=== PATIENT | male | born 1950 | race Caucasian/White ===

== ENCOUNTER 2017-12-21 11:17 | Emergency (ER) | payer OTHER, MEDICARE ==
[2017-12-21 11:53] LABS: Urine Blood NEGATIVE (NEG); Urine Glucose NEGATIVE (NEG); Urine Protein NEGATIVE (NEG); Urine pH 6.5 (5.0-7.0)
--- NOTE | 2017-12-21 12:36 | RAD REPORT ---
EXAM DESCRIPTION: CT - Stone Protocol - 12/21/2017 12:22 pm CLINICAL HISTORY: Abdominal pain COMPARISON: None. TECHNIQUE: Axial 5 mm thick images were obtained without oral or IV contrast. The [id number] span s the entirety of the system including uppermost abdomen and lung bases. All CT scans are performed using dose optimization technique as appropriate and may include automated exposure control or mA/KV adjustment according to patient size. FINDINGS: No hydronephrosis is present and no obstructing ureteral calculi. A 5 centimeter cyst is p resent posterior mid left kidney. Multiple low-density areas within each pelvis are believed to be pa rapelvic cysts and not dilatation of the collecting system. In the lateral mid left kidney there is a 14 millimeter low-density area that is probably a minimally complex cyst. This is not fully characte rized. Urinary bladder is only partially filled. Prostate gland is enlarged measuring 6.5 cm AP x 8 cm transverse. There is an irregular lobulated con tour projecting into the bladder base. It is difficult to determine if this is prostatic hypertrophy extending into the bladder base or a trigone bladder mass. Correlation can be made with PSA values an d any possible UA abnormalities. No adjacent lymphadenopathy mass or edema. Imaged portions of the liver, spleen and pancreas show no suspicious findings on non-contrast imaging . Several small low-density areas are present in the liver parenchyma most likely cysts. These are un judy a centimeter and not fully characterized. No gallbladder or biliary tree abnormality. No signific ant adrenal finding. No suspicious bowel findings. Moderate stool volume is present in the colon. There is mild to moderat e sigmoid diverticulosis without diverticulitis. No hernia, mass or bulky lymphadenopathy noted. No free air, free fluid or inflammatory stranding. No significant bony abnormality. Degenerative changes are present. IMPRESSION: No hydronephrosis, obstructing calculus or acute finding. A 14 millimeter low-density mass lateral mid left kidney is probably a minimally complex cyst. This c an be monitored on subsequent imaging. Enlarged prostate gland with a lobulated masslike contour at the trigone of the bladder. This could b e prostatic hypertrophy, prostate invasion of the bladder or a bladder base mass. Correlation with PS A and UA findings needed. Approximately 5 centimeter benign cyst posterior mid left kidney with bilateral parapelvic cysts pres ent. No acute GI process. There is left-sided diverticulosis and moderate stool volume throughout the colo n. Isodense masses and pyelonephritis are not excluded on stone protocol technique.
[2017-12-21 12:46] LABS: Absolute Lymphocytes (CBC) 0.9 K/uL (0.7-4.9); Absolute Monocytes 0.5 K/uL (0.1-1.3); Absolute Neutrophil 2.6 K/uL (1.8-8.0); Basophils % 0.4 % (0-1.3); Eosinophils % 1.1 % (0-4.4); Hematocrit 47.4 % (39.6-49.0); Lymphocytes % 23.5 % (15.3-44.8); MCH 31.8 pg (27.0-35.0); MCV 92.2 fL (80-100); MPV 8.4 fL (7.6-11.3); Monocytes % 11.3 % (3.3-12.3); RBC Red Blood Cell Count 5.14 M/uL (4.33-5.43)
[2017-12-21 13:15] LABS: Albumin 3.6 g/dL (3.4-5.0); Bilirubin Direct 0.1 mg/dL (0-0.2); Bilirubin Total 0.6 mg/dL (0.2-1.0); Potassium 3.8 mmol/L (3.5-5.1); Protein, Total 7.1 g/dL (6.4-8.2)
--- NOTE | 2017-12-21 14:20 | EDPHYS ---
Physician Documentation [facility] Name: Hank De Age: 67 yrs Sex: Male : 1950 Arrival Date: 12/21/2017 Time: 11:19 Bed 19 Private MD: Darrell Mejia ED Physician Luis Parson HPI: 12/21 14:14 This 67 yrs old Male presents to ER via Ambulatory with complaints of gs Abdominal Pain, Constipation. 14:14 The patient presents with abdominal pain in the lower abdomen. Onset: The gs symptoms/episode began/occurred 1 week(s) ago, and became persistent intermittent. The symptoms do not radiate. Associated signs and symptoms: Pertinent positives: constipation. The symptoms are described as crampy. Modifying factors: The symptoms are alleviated by nothing, the symptoms are aggravated by nothing. Severity of pain: At its worst the pain was moderate in the emergency department the pain has improved markedly. The patient has not experienced similar symptoms in the past. The patient has not recently seen a physician. Historical: - Allergies: 11:28 No Known Allergies; aa5 - PMHx: 11:28 Hyperlipidemia; Hypertension; aa5 - PSHx: 11:28 Knee surgery; Hernia repair; Appendectomy; Brain tumor sx; Thumb sx; aa5 - Immunization history:: Pneumococcal vaccine is not up to date, Flu vaccine is not up to date. - Social history:: Smoking status: Patient/guardian denies using tobacco. - Ebola Screening: : No symptoms or risks identified at this time. ROS: 14:14 All other systems are negative. gs Exam: 14:14 Head/Face: Normocephalic, atraumatic. Eyes: Pupils equal round and reactive to light, gs extra-ocular motions intact. Lids and lashes normal. Conjunctiva and sclera are non-icteric and not injected. Cornea within normal limits. Periorbital areas with no swelling, redness, or edema. ENT: Nares patent. No nasal discharge, no septal abnormalities noted. Tympanic membranes are normal and external auditory canals are clear. Oropharynx with no redness, swelling, or masses, exudates, or evidence of obstruction, uvula midline. Mucous membranes moist. Neck: Trachea midline, no thyromegaly or masses palpated, and no cervical lymphadenopathy. Supple, full range of motion without nuchal rigidity, or vertebral point tenderness. No Meningismus. Chest/axilla: Normal chest wall appearance and motion. Nontender with no deformity. No lesions are appreciated. Cardiovascular: Regular rate and rhythm with a normal S1 and S2. No gallops, murmurs, or rubs. Normal PMI, no JVD. No pulse deficits. Respiratory: Lungs have equal breath sounds bilaterally, clear to auscultation and percussion. No rales, rhonchi or wheezes noted. No increased work of breathing, no retractions or nasal flaring. Abdomen/GI: Soft, non-tender, with normal bowel sounds. No distension or tympany. No guarding or rebound. No evidence of tenderness throughout. Back: No spinal tenderness. No costovertebral tenderness. Full range of motion. Skin: Warm, dry with normal turgor. Normal color with no rashes, no lesions, and no evidence of cellulitis. MS/ Extremity: Pulses equal, no cyanosis. Neurovascular intact. Full, normal range of motion. Neuro: Awake and alert, GCS 15, oriented to person, place, time, and situation. Cranial nerves II-XII grossly intact. Motor strength 5/5 in all extremities. Sensory grossly intact. Cerebellar exam normal. Normal gait. 14:14 Constitutional: The patient appears alert, awake. Vital Signs: 11:28 BP 138 / 93; Pulse 83; Resp 16 S; Temp 97.4(TE); Pulse Ox 99% on R/A; Weight 87.09 kg aa5 (R); Height 6 ft. 0 in. (182.88 cm) (R); Pain 9/10; 12:43 BP 120 / 79; Pulse 73; Resp 14; Pulse Ox 97% ; bp 14:09 BP 124 / 89; Pulse 71; Resp 16; Pulse Ox 98% ; bp 14:36 BP 123 / 80; Pulse 62; Resp 14; Pulse Ox 98% ; bp 11:28 Body Mass Index 26.04 (87.09 kg, 182.88 cm) aa5 MDM: 12:04 Patient medically screened. gs 14:14 Differential diagnosis: bowel obstruction, diverticulitis, non-specific abd pain. Data gs reviewed: vital signs, nurses notes. Counseling: I had a detailed discussion with the patient and/or guardian regarding: the historical points, exam findings, and any diagnostic results supporting the discharge/admit diagnosis, lab results, radiology results, the need for outpatient follow up. Response to treatment: There is no appreciated change of the patient's symptoms at this time, and as a result, I will discharge patient. 12/21 11:49 Order name: Urine Dipstick--Ancillary (enter results); Complete Time: 12:37 bd 12/21 12:05 Order name: Basic Metabolic Panel; Complete Time: 13:29 gs 12/21 12:05 Order name: CBC with Diff; Complete Time: 13:29 gs 12/21 12:05 Order name: Creatinine for Radiology; Complete Time: 13:29 gs 12/21 12:05 Order name: Hepatic Function; Complete Time: 13:29 gs 12/21 12:05 Order name: Lipase; Complete Time: 13:29 12/21 12:05 Order name: IV Saline Lock; Complete Time: 12:34 gs 12/21 12:05 Order name: Labs collected and sent; Complete Time: 12:34 gs 12/21 12:05 Order name: EKG; Complete Time: 12:06 12/21 12:05 Order name: EKG - Nurse/Tech; Complete Time: 12:16 gs 12/21 12:05 Order name: CT Stone Protocol; Complete Time: 12:37 gs Administered Medications: No medications were administered Disposition: 12/21/17 14:19 Discharged to Home. Impression: Lower abdominal pain, unspecified. - Condition is Stable. - Discharge Instructions: Abdominal Pain, Adult. - Medication Reconciliation Form, Thank You Letter, Antibiotic Education, Prescription Opioid Use form. - Follow up: Private Physician; When: 2 - 3 days; Reason: Re-evaluation by your physician. Signatures: Dispatcher [employer] Ramandeep Whitehead RN RN aa5 Luis Parson MD MD gs Peltier, Brian RN RN bp Corrections: (The following items were deleted from the chart) 14:37 14:19 12/21/2017 14:19 Discharged to Home. Impression: Lower abdominal pain, bp unspecified. Condition is Stable. Forms are Medication Reconciliation Form, Thank You Letter, Antibiotic Education, Prescription Opioid Use. Follow up: Private Physician; When: 2 - 3 days; Reason: Re-evaluation by your physician. gs
--- NOTE | 2017-12-21 14:20 | ER ---
Nurse's Notes [facility] Name: Hank De Age: 67 yrs Sex: Male : 1950 Arrival Date: 12/21/2017 Time: 11:19 Bed 19 Private MD: Darrell Mejia Diagnosis: Lower abdominal pain, unspecified Presentation: 12/21 11:26 Presenting complaint: Patient states: intermittent lower abd pain x 1 week ago. Pt aa5 states "I am constipated and nauseous". Denies vomiting, reports decreased appetite. Transition of care: patient was not received from another setting of care. Onset of symptoms was November 2017. Risk Assessment: Do you want to hurt yourself or someone else? Patient reports no desire to harm self or others. Initial Sepsis Screen: Does the patient meet any 2 criteria? No. Patient's initial sepsis screen is negative. Does the patient have a suspected source of infection? No. Patient's initial sepsis screen is negative. Care prior to arrival: None. 11:26 Method Of Arrival: Ambulatory aa5 11:26 Acuity: SEBASTIAN 3 aa5 Triage Assessment: 14:08 General: Appears in no apparent distress. comfortable, Behavior is calm, cooperative, bp appropriate for age. Historical: - Allergies: 11:28 No Known Allergies; aa5 - PMHx: 11:28 Hyperlipidemia; Hypertension; aa5 - PSHx: 11:28 Knee surgery; Hernia repair; Appendectomy; Brain tumor sx; Thumb sx; aa5 - Immunization history:: Pneumococcal vaccine is not up to date, Flu vaccine is not up to date. - Social history:: Smoking status: Patient/guardian denies using tobacco. - Ebola Screening: : No symptoms or risks identified at this time. Screenin:35 Abuse screen: Denies threats or abuse. Denies injuries from another. Nutritional bp screening: No deficits noted. Tuberculosis screening: No symptoms or risk factors identified. Fall Risk None identified. Assessment: 11:30 General: Appears in no apparent distress. comfortable, slender, Behavior is calm, bp cooperative, appropriate for age. Pain: Complains of pain in abdomen. Neuro: Level of Consciousness is awake, alert, obeys commands, Oriented to person, place, time, situation, Appropriate for age. Cardiovascular: No deficits noted. Respiratory: Airway is patent Respiratory effort is even, unlabored, Respiratory pattern is regular, symmetrical. GI: Bowel sounds present X 4 quads. Abd is soft X 4 quads. : No signs and/or symptoms were reported regarding the genitourinary system. EENT: No deficits noted. Derm: No deficits noted. Musculoskeletal: Circulation, motion, and sensation intact. Range of motion: intact in all extremities. 12:43 Reassessment: PT RETURNED FROM CT. ALL CURRENT ORDERS COMPLETED, RESULTS PENDING. bp 14:09 Reassessment: ALL CURRENT ORDERS COMPLETED, DISPO PENDING. bp 14:36 Reassessment: PT D/C HOME AMBULATORY WITH FAMILY, DX WITH UNSPECIFIED ABD PAIN. bp Vital Signs: 11:28 BP 138 / 93; Pulse 83; Resp 16 S; Temp 97.4(TE); Pulse Ox 99% on R/A; Weight 87.09 kg aa5 (R); Height 6 ft. 0 in. (182.88 cm) (R); Pain 9/10; 12:43 BP 120 / 79; Pulse 73; Resp 14; Pulse Ox 97% ; bp 14:09 BP 124 / 89; Pulse 71; Resp 16; Pulse Ox 98% ; bp 14:36 BP 123 / 80; Pulse 62; Resp 14; Pulse Ox 98% ; bp 11:28 Body Mass Index 26.04 (87.09 kg, 182.88 cm) aa5 ED Course: 11:19 Patient arrived in ED. rg4 11:19 Darrell Mejia MD is Private Physician. rg4 11:27 Triage completed. aa5 11:27 Arm band placed on. aa5 11:31 Luis Parson MD is Attending Physician. gs 11:37 Darrell Leal, RN is Primary Nurse. bp 11:50 Urine Dipstick--Ancillary (enter results) Sent. mh5 12:[address] jg6 12:21 CT completed. Patient tolerated procedure well. Patient moved back from CT. jg6 12:22 CT Stone Protocol In Process Unspecified. EDMS 12:25 EKG done, by player piano technician. reviewed by Luis Parson MD. at1 12:35 Patient has correct armband on for positive identification. Bed in low position. Call bp light in reach. Side rails up X2. Adult w/ patient. 12:35 Inserted saline lock: 20 gauge in right antecubital area, using aseptic technique. bp Blood collected. 14:37 No provider procedures requiring assistance completed. IV discontinued, intact, bp bleeding controlled, No redness/swelling at site. Pressure dressing applied. Administered Medications: No medications were administered Outcome: 14:19 Discharge ordered by . srinath 14:37 Discharged to home ambulatory, with family. bp 14:37 Condition: stable 14:37 Discharge instructions given to patient, Instructed on discharge instructions, follow up and referral plans. Demonstrated understanding of instructions, follow-up care. 14:37 Patient left the ED. bp Signatures: Dispatcher [employer] EDMS Ramandeep Peters, RN RN aa5 Jaycee Sparks, auto clutch rebuilder EKG Tat1 Loren Melvin 4 Anneliese Young 5 Luis Parson MD MD gs Peltier, Brian RN RN Romelia Christie jg6 Corrections: (The following items were deleted from the chart) 14:13 14:09 BP 127 / 89; Pulse 59bpm; Resp 16bpm; Pulse Ox 98%; bp bp
[2017-12-21 15:15] VITALS: TEMP 97.4
[2017-12-21 15:18] VITALS: O2SAT 98
[2017-12-21 15:19] VITALS: BP 123/80
--- NOTE | 2017-12-21 16:20 | EKG ---
Test Date: 2017-12-21 Test Time: 12:12:55 Baster Hand: ALLYSON MEASUREMENT RESULTS: Intervals: Rate: 67 WI: 154 QRSD: 98 QT: 404 QTc: 426 Duncan: P: 48 WI: 154 QRS: 45 T: 22 INTERPRETIVE STATEMENTS: Normal sinus rhythm Normal ECG Compared to ECG 08/08/2016 10:46:21 No significant changes Electronically Signed On 12-21-17 16:19:55 CDT by Hans Sanchez
== END 2017-12-21 14:37 | disposition home or self-care (01) ==
LOC: ER 11:17
DX: R10.30 Lower abdominal pain, unspecified (principal); I10 Essential (primary) hypertension; E78.5 Hyperlipidemia, unspecified
CPT/HCPCS: 36415; 74176; 76377; 80048; 80076; 81003; 83690; 85025; 93005; 99284

== ENCOUNTER 2019-09-25 14:34 | Emergency (ER) | payer OTHER, MEDICARE ==
--- OUTSIDE RECORDS SUMMARY | 2019-09-25 14:36 | XMS REPORT | Continuity of Care Document ---
:1950 Author Organization [facility] [employer] Information [place] Care Team Providers Name Role Phone [facility] Information [employer] Unavailable Un available Problems Problem Status Onset Classification Date Comments Sourc e Date Reported Other specified 12/27/19 07/11/2018 disorders of 18 [place] kidney and ureter R10.9 Active 12/23/19 [facility] [address] [place] D32.9 - "BENIGN Active 04/19/19 O PID NEOPLASM OF [address] MENINGES, U" MENINGIOMA Active 07/29/[address] Enlarged prostate 07/11/2018 M H without lower [place] urinary tract symptoms Diverticulosis of 07/11/2018 M H large intestine [place] without perforation or abscess without bleeding Hyperlipidemia Resolved Problem 07/11/2018 [place] (disorder) [facility] [place], [facility] [place] Hypertensive Resolved Problem 07/11/2018 Yobany as disorder, Medical systemic arterial Ce nter, (disorder) Latrice, M [facility] [place]umar, [facility] [place] NOLVIA TULIO CEREBR Active [facility] UNSPECIFIED Active [facility] ABDOMINAL PAIN Yolie nn OTHER SPECIFIED Active Sami rial DISORDERS OF S[facility] KIDNEY AND Medications No Data Provided for This Section Allergies, Adverse Reactions, Alerts Substance Category Reaction Severity Reaction Status Date Comments S ource type Reported No Known Assertion Drug Medication allergy Emma and Allergies Immunizations No Data Provided for This Section Results Order Results Value Reference Date Interpretation Comments Source Name Range CHEM eGFR 92 PANEL 2018 Comment: The [place] eGFR is calculated using the CKD-EPI formula. In most young, healthy individuals the eGFR will be >90 mL/min/1.73m2. The eGFR declines with age. An eGFR of 60-89 may be normal in some populations, particularly the elderly, for whom the CKD-EPI formula has not been extensively validated. Use of the eGFR is not recommended in the following populations:<b r/>
Indivi duals with unstable creatinine concentrations , including patients and those with serious co-morbid conditions.

Patient s with extremes in muscle mass or diet.

The data above are obtained from the National Kidney Disease Education Program (NKDEP) which additionally recommends that when the eGFR is used in patients with extremes of body mass index for purposes of drug dosing, the eGFR should be multiplied by the estimated BMI. CHEM Creatinine 0.81 0.50 - 1.40 12/22[facility] 2017 [place] CHEM eGFR 80 08/08/ <sup>1</sup>Re [address] Comment: Medical The eGFR is Center calculated using the CKD-EPI formula. In most young, healthy individuals the eGFR will be >90 mL/min/1.73m2. The eGFR declines with age. An eGFR of 60-89 may be normal in some populations, particularly the elderly, for whom the CKD-EPI formula has not been extensively validated. Use of the eGFR is not recommended in the following populations:&l t;br/>
Ind ividuals with unstable creatinine concentrations , including patients and those with serious co-morbid conditions.

Patient s with extremes in muscle mass or diet.

The data above are obtained from the National Kidney Disease Education Program (NKDEP) which additionally recommends that when the eGFR is used in patients with extremes of body mass index for purposes of drug dosing, the eGFR should be multiplied by the estimated BMI. CHEM Creatinine 1.0 0.5 - 1.4 08/08/ [facility] 2013 [facility] CHEM BUN 15 7 - 22 08/[address] Pathology Reports No Data Provided for This Section Diagnostic Reports Report Value Date Source Abdomen/Pelvis w/wo Patient Name: GINNY QUEEN 018 [facility] IV contrast CT : 1950; Age: 67 years Male MR: [id number] Study: Abdomen/Pelvis w/wo IV contrast CT 2017 11:48 AM CDT CLINICAL INDICATION: - othe r specified disorders of kidney and ureter, lower abdominal pain COMPARISON: None TECHNIQUE: Multidetector CT imaging of the abdomen and pelvis WITH AND WITHOUT IV contrast. Coronal and sagittal reconstructions were generated and reviewed. CT imaging performed at this location utiliz es radiation dose optimizati on techniques which include one or more of the following: -Automated exposure control -Adjustment of the mA and/or kV according to pat ient size -Use of iterative reconstruction technique Radiation dose: 1604.34 mGycm IV contrast: 100 cc of Omnipaque 300 Oral contrast: 50 mL of Omnipaque FINDINGS: Lower thorax: Subpleural 5 m m nodule within the right lower lobe. Few calcified granulomas within the right lower lobe. Small hiatal hernia. Hepatobiliary: Multiple small hepatic cysts. Unr emarkable gallbladder. Pancreas: No focal mass or ductal dilatation. Spleen: No splenomegaly. Adrenals: No nodules. Kidneys: Multiple cortical a nd parapelvic cysts within both kidneys. No hydronephrosis or nephrolithiasis. Enhancing mass (4.9 x 3.3 x 4.2 cm) within the medial right kidney. The mass does not extend in to the renal pelvis. No evid ence of renal vein thrombus. No enhancing mass within the contralateral left kidney. Pelvic organs: Enlarged pros pate measures approximately 7.2 x 7.8 x 6.5 cm. Decompressed bladder. Peritoneum/Retroperitoneum: No free air or free fluid. Lymph nodes: No lymphadenopathy. Vessels: Mild aortoiliac atherosclerosis. GI: No significant bowel thi ckening or dilatation. Extensive colonic diverticulosis. Bones and soft tissues: Degenerative changes of the lumbar spine. IMPRESSION: Enhancing mass (4.9 x 3.3 x 4.2 cm) within the medial right kidney suspicious for renal cell carcinoma. Severe prostatomegaly. Extensive colonic diverticulosis. Subpleural nodule (5 mm) wit hin the right lower lobe. Consider follow-up CT chest in 6-12 months to assess stability. SL: [id number] Brain w/wo contrast MRI of the brain with and without contrast 0 04/26/2015 [facility] [place] MRI Clinical indication: Meningioma Technique: Multiplanar, mult isequence pre- and postcontrast images of the brain were obtained. 15 cc of Omniscan was administered. Comparison: 03/23/2014 Findings: Brain volumes are within normal limits for age. The left anterior falcine enhancing, diffusion restricted mass with dural tail likely due to meningioma has not significantly changed. By my estefanía surements, this measures nohelia roximately 1.8 cm in all dimensions. Mild remodeling of the left anterior medial frontal cortex, without evidence of vasogenic edema. Minimal nonspecific T2 hyperintensities of the cerebral white matter are within normal limits for age not significantly changed. There is no evidence of acute infarct, intracranial hemorrhage, mass- effect, midline shift, hydrocephalus or extr a-axial collection. The orbi ts are normal. The paranasal sinuses and mastoid air cells are well-aerated. Moderate rightward nasal septal deviation and spurring contacts remodels the right inferior turbi kb, which is a potential source of headaches i n some patients. Impression: No significant change in lef t anterior falcine probable meningioma. No acute abnormality. Brain w/wo contrast EXAM: MRI BRAIN WITHOUT AND WITH CONTRAST EKATERINA Patino MRI DATE: 03/23/2014 at 1420 hours. INDICATION: Meningioma status post gamma surgery 08/13/2013 TECHNIQUE: Multiplanar, mult isequence MRI of the brain was performed prior to and following intravenous administration of 15 cc Omniscan. COMPARISON: MRI brain 08/08/2013 FINDINGS: Redemonstration o f extra-axial T2 hyperintense enhancing mass along the anterior falx, asymmetric to the left. The mass is unchanged in size and appearance measuring up to 17 x 19 x 18 mm ( axial x craniocaudal dimensi ons). There is associated mild mass effect on the left cingulate gyrus and left frontal lobe. Punctate focus of enhancemen t seen only on the coronal images in the left putamen (image 26/series [id number]) was not definitely present on previous studies and may represent artifact. Small foci of T2 hyperintens e signal in the periventricular and subcortical white matter is seen. Although nonspecific lack represent chronic small vessel ischemic changes and is stable since the prior studies. There is no restric sridevi diffusion to suggest acute or subacute infarction. Ventricles are normal.The larger intracranial vascular flow voids are preserved. No abnormality of the skull base or calvarium is present. The visualized paranasal sinuses, mastoid air cells, and orbits are within normal limits. IMPRESSION: 1. Unchanged appearance of left anterior parafal cine meningioma. 2. Punctate focus of enhance ment seen only on the coronal images in the left putamen without corresponding abnormality on orthogonal imaging or other sequences. Not seen on previous images. This may re present artifact although th e presence of neoplastic disease cannot be entirely excluded. Close continued followup is recommended. Brain w contrast MRI EXAM: MRI BRAIN WITH CONTRAST. 08/08/2013 [facility] DATE: 08/08/2013 INDICATION: Meningioma, gamma knife. TECHNIQUE: Axial 3-D T1 SPGR imaging the brain was acquired following intravenous administration of 18 cc Multihance. COMPARISON: MRI brain from 07/15/2013. DISCUSSION: Again demonstrat ed is the enhancing extra-axial anterior parafalcine mass, eccentric to the left, which measures 20 mm transverse x18 mm AP with mild associated local mass effect. Mass is no t significantly changed in s ize. No additional abnormal enhancing lesions within the included portions of the brain. In the included portions of the lateral ventricles are normal in size without midline shift. IMPRESSION: Limited sequence for treatment planning. Anterior parafalcine meningioma, not significant ly changed in size. Consultation Notes No Data Provided for This Section Discharge Summaries No Data Provided for This Section History and Physicals No Data Provided for This Section Vital Signs No Data Provided for This Section Encounters Location Location Encounter Encounter Reason Attending ADM DC Stat us Source Details Type Number For Provider Date Date Visit [facility] Outpatient [id number] Edgar 08/08 08/08 Geni [facility] [id number] Hans 03/23 03/24 [facility]2014 [facility] Outpt Diag [id number] Hans 04/26 04/27 [facility] [place] [facility] [place] [facility] Outpatient [id number] Pawan 12/22 12/23 Sukumar Pulido /2017 [facility] Procedures Procedure Code Date Perfomer Comments Source Arthroscopic [id number] 03/02/1984 debridement of knee Emma and, joint [facility] [place] Assessment and Plan No Data Provided for This Section Plan of Care No Data Provided for This Section Social History Social History Date Source Social History TypeResponse 07/14/2013 SER[facility] kraus Alcohol Use: Current, Type: Beer, Frequency: Temi ly, Has alcohol use interfered with work or home life? No, Do you ever drink more than intended? No, Has anyone been hurt or at risk by your drinking? No, Ready t o change: No, Concerns about alcohol use in household: No Smoking Status Never smoker, Exposure to Tobacco Smoke None, Cigarette Smoking Last 365 Days No, Reg Smoking Cessation Counseling No Social History TypeResponse 07/14/2013 SERA Carusokhanh ramesh Cong Alcohol Current, Type Beer. Frequency: Daily. Started age 21 Years. Alcohol use interferes with work or home: No. Drinks more than intended: No. Others hurt by drinking: No. Ready to change: No. Household alcohol concerns: No. Smoking Status Never smoker; Exposure to Tobacco Smoke None; Cigarette Smoking Last 365 Days No; Reg Smoking Cessation Counseling No Social History TypeResponse 07/14/2013 [place] Alcohol Current, Type Beer. Frequency: Daily. Started age 21 Years. Alcohol use interferes with work or home: No. Drinks more than intended: No. Others hurt by drinking: No. Ready to change: No. Household alcohol concerns: No. Smoking Status Never smoker; Exposure to Tobacco Smoke None; Cigarette Smoking Last 365 Days No; Reg Smoking Cessation Counseling No entered on: 07/14/13 Social History TypeResponse 07/14/2013 [facility] Alcohol Use: Current, Type: Beer, Frequency: Temi ly, Has alcohol use interfered with work or home life? No, Do you ever drink more than intended? No, Has anyone been hurt or at risk by your drinking? No, Ready t o change: No, Concerns about alcohol use in household: No Smoking Status Never smoker, Exposure to Tobacco Smoke None, Cigarette Smoking Last 365 Days No, Reg Smoking Cessation Counseling No Family History No Data Provided for This Section Advance Directives No Data Provided for This Section Functional Status No Data Provided for This Section
--- OUTSIDE RECORDS SUMMARY | 2019-09-25 14:36 | XMS REPORT | Clinical Summary ---
:1950 Author Organization [facility] Address [address] [place] [address] Care Team Providers Name Role Phone Provider Primary Care Provider Unavailable Allergies Active Allergy Reactions Severity Noted Date Comments Iodixanol Swelling High 04/30/2018 Left eye rednes s and itching, left eyelid swelling Medications Medication Sig Dispensed Refills Start Date End Date Status irbesartan-hydrochlor irbesartan 150 mg-hydrochlorothiazide 12.5 mg ta blet 0 Active othiazide (AVALIDE) Take 1 tablet every day by oral route. 150-12.5 mg per tablet tamsulosin (FLOMAX) Flomax 0.4 mg capsule 0 Active 0.4 mg capsule Take 1 capsule every day by oral route at bedtime Lactobac Probiotic 0 Active no.41-Bifidobact no.7 (PROBIOTIC-10) 70 mg (3 billion cell) capsule TURMERIC ORAL Take by mouth. 0 A ctive calcium Take by mouth. 0 Activ e citrate/vitamin D3 (CITRACAL + D ORAL) polyethylene glycol Take 17 g by mouth 0 Active (MIRALAX) 17 gram daily. packet Active Problems Problem Noted Date Right kidney mass 01/26/2018 Right renal mass 01/25/2018 Social History Tobacco Use Types Packs/Day Years Used Date Never Smoker Smokeless Tobacco: Never Used Alcohol Use Drinks/Week oz/Week Comments Yes occasionally Sex Assigned at Date Recorded Not on file Job Start Date Occupation Industry Not on file Not on file Not on file Travel History Travel Start Travel End No recent travel history available. Last Filed Vital Signs Not on file Plan of Treatment Health Maintenance Due Date Last Done Comments COLONOSCOPY SCREENING 2000 SHINGLES VACCINES (#1) 2000 65+ PNEUMOCOCCAL VACCINE (1 of 2 - PCV13) 10/31/2015 INFLUENZA VACCINE 10/01/2019 Implants Implanted Type Area Storage Solutions Architect Device Shelf Model / Identifier Expiration Serial / Date Lot Clip Ligtng Hem-O-Radames Endoscpc Aplr Ply Lg - [id number] Surgic al N/A: N/A WECK CLOSURE [id number] / Implanted: 01/25/2018 at [facility] (Quantity not on file) Implan ts; SYSTEMS / Expanders; Extenders; Surgical Wires Clip Ligtng Hem-O-Radames Endoscpc Aplr Ply Lg - [id number] Surgic al N/A: N/A WECK CLOSURE 09/07/2022 [id number] / Implanted: Qty: 2 on 01/25/2018 by Hector Irene MD at [facility] Implants; SYSTEMS / Expanders; Extenders; Surgical Wires Clip Ligtng Hem-O-Radames Endoscpc Aplr Ply Lg - [id number] Surgic al N/A: N/A WECK CLOSURE 08/02/2022 [id number] / Implanted: Qty: 2 on 01/25/2018 by Hector Irene MD at [facility] Implants; SYSTEMS / Expanders; Extenders; Surgical Wires Results Not on fileafter 09/24/2018 Insurance Payer Benefit Plan / Subscriber ID Effective Dates Phone Addre ss Type Group MEDICARE MEDICARE PART A xxxxxxxxxxx 2015-Present [place], [place] Medicare AND B AARP AARP SUPPLEMENT xxxxxxxxxxx 2017-Present Commercial Advance Directives For more information, please contact: [phone] Type Date Recorded Patient Civil Engineering Drafter Explanati on Advance Directives, Living Will and Medical Power of Chemical Plant Manager Advance Directives, Living Will 01/30/2018 8:37 AM 01-24-18 and Medical Power of Chemical Plant Manager
[2019-09-25 15:20] LABS: Absolute Lymphocytes (CBC) 1.1 K/uL (0.7-4.9); Basophils % 0.5 % (0-1.3); Hematocrit 43.8 % (39.6-49.0); MPV 8.2 fL (7.6-11.3); RBC Red Blood Cell Count 4.88 M/uL (4.33-5.43)
[2019-09-25 15:37] LABS: Albumin 3.6 g/dL (3.4-5.0); Bilirubin Direct 0.1 mg/dL (0-0.2); Bilirubin Total 0.4 mg/dL (0.2-1.0); Potassium 3.4 mmol/L (3.5-5.1); Protein, Total 7.2 g/dL (6.4-8.2)
[2019-09-25 15:58] LABS: Urine Blood NEGATIVE (NEG); Urine Glucose NEGATIVE (NEG); Urine Protein NEGATIVE (NEG)
[2019-09-25] MEDS ORDERED: ONDANSETRON 4 MG/2 ML VIAL ONE (16:01)
[2019-09-25] MEDS ORDERED: MORPHINE 2 MG/ML SYR ONE (16:01)
[2019-09-25] MEDS ORDERED: NA CHLORIDE 0.9% 1,000 ML ONE (16:02)
--- NOTE | 2019-09-25 17:22 | RAD REPORT ---
EXAM DESCRIPTION: CT - Abdomen Pelvis Wo Contrast - 09/25/2019 5:03 pm CLINICAL HISTORY: Abdominal pain COMPARISON: 2017 TECHNIQUE: Computed axial tomography of the abdomen and pelvis was obtained. IV was not requested. O ral contrast was given. Coronal reconstructions performed. All CT scans are performed using dose optimization technique as appropriate and may include automated exposure control or mA/KV adjustment according to patient size. FINDINGS: The evaluation of solid organs and vessels is limited secondary to the lack of contrast a dministration. Small hepatic cysts The spleen, pancreas and adrenals appear grossly normal Bilateral renal cysts. Largest extends off left kidney measuring 4.7 centimeters. There is no evidence of diverticulitis. The prostate gland is markedly enlarged. A small hiatal hernia. Moderate amount stool throughout the colon IMPRESSION: Marked prostatic enlargement Moderate amount of stool throughout the colon
--- NOTE | 2019-09-25 17:27 | EDPHYS ---
Physician Documentation [facility] Name: Hank De Age: 68 yrs Sex: Male : 1950 Arrival Date: 09/25/2019 Time: 14:36 Bed 6 Private MD: Darrell Mejia ED Physician Delroy Ring HPI: 09/24 15:01 This 68 yrs old Male presents to ER via Ambulatory with complaints of keila Abdominal Pain. 15:01 The patient presents with abdominal pain. Onset: The symptoms/episode began/occurred 3 keila day(s) ago. The symptoms do not radiate. Associated signs and symptoms: none. The symptoms are described as constant, crampy. Modifying factors: The symptoms are alleviated by nothing, the symptoms are aggravated by nothing. Severity of pain: At its worst the pain was moderate in the emergency department the pain is unchanged. The patient has experienced similar episodes in the past, several times. Historical: - Allergies: 14:43 iv contrast; hb - PMHx: 14:43 Hyperlipidemia; Hypertension; hb - PSHx: 14:43 Knee surgery; Hernia repair; Appendectomy; Brain tumor sx; Thumb sx; hb - Immunization history:: Adult Immunizations up to date. - Social history:: Smoking status: Patient denies any tobacco usage or history of. - Family history:: not pertinent. ROS: 15:01 Constitutional: Negative for fever, chills, and weight loss, Eyes: Negative for injury, keila pain, redness, and discharge, ENT: Negative for injury, pain, and discharge, Neck: Negative for injury, pain, and swelling, Cardiovascular: Negative for chest pain, palpitations, and edema, Respiratory: Negative for shortness of breath, cough, wheezing, and pleuritic chest pain, Back: Negative for injury and pain, : Negative for injury, bleeding, discharge, and swelling, MS/Extremity: Negative for injury and deformity, Skin: Negative for injury, rash, and discoloration, Neuro: Negative for headache, weakness, numbness, tingling, and seizure, Psych: Negative for depression, anxiety, suicide ideation, homicidal ideation, and hallucinations, Allergy/Immunology: Negative for hives, rash, and allergies, Endocrine: Negative for neck swelling, polydipsia, polyuria, polyphagia, and marked weight changes, Hematologic/Lymphatic: Negative for swollen nodes, abnormal bleeding, and unusual bruising. 15:01 Abdomen/GI: Positive for abdominal pain, of the right lower quadrant and left lower quadrant. Exam: 15:01 Constitutional: This is a well developed, well nourished patient who is awake, alert, keila and in no acute distress. Head/Face: Normocephalic, atraumatic. Eyes: Pupils equal round and reactive to light, extra-ocular motions intact. Lids and lashes normal. Conjunctiva and sclera are non-icteric and not injected. Cornea within normal limits. Periorbital areas with no swelling, redness, or edema. ENT: Nares patent. No nasal discharge, no septal abnormalities noted. Tympanic membranes are normal and external auditory canals are clear. Oropharynx with no redness, swelling, or masses, exudates, or evidence of obstruction, uvula midline. Mucous membranes moist. Neck: Trachea midline, no thyromegaly or masses palpated, and no cervical lymphadenopathy. Supple, full range of motion without nuchal rigidity, or vertebral point tenderness. No Meningismus. Chest/axilla: Normal chest wall appearance and motion. Nontender with no deformity. No lesions are appreciated. Cardiovascular: Regular rate and rhythm with a normal S1 and S2. No gallops, murmurs, or rubs. Normal PMI, no JVD. No pulse deficits. Respiratory: Lungs have equal breath sounds bilaterally, clear to auscultation and percussion. No rales, rhonchi or wheezes noted. No increased work of breathing, no retractions or nasal flaring. Back: No spinal tenderness. No costovertebral tenderness. Full range of motion. Male : Normal genitalia with no discharge or lesions. Skin: Warm, dry with normal turgor. Normal color with no rashes, no lesions, and no evidence of cellulitis. MS/ Extremity: Pulses equal, no cyanosis. Neurovascular intact. Full, normal range of motion. Neuro: Awake and alert, GCS 15, oriented to person, place, time, and situation. Cranial nerves II-XII grossly intact. Motor strength 5/5 in all extremities. Sensory grossly intact. Cerebellar exam normal. Normal gait. Psych: Awake, alert, with orientation to person, place and time. Behavior, mood, and affect are within normal limits. 15:01 Abdomen/GI: Inspection: abdomen appears normal, Bowel sounds: active, Palpation: abdomen is soft and non-tender, Liver: no appreciated palpable abnormalities, Hernia: not appreciated. Vital Signs: 14:39 BP 143 / 99; Pulse 103; Resp 16; Temp 97.9; Pulse Ox 100% on R/A; Weight 83.91 kg; hb Height 6 ft. (182.88 cm); Pain 9/10; 16:00 BP 129 / 83; Pulse 62; Resp 18; Temp 97.5(O); Pulse Ox 99% on R/A; Pain 5/10; ls4 16:56 BP 158 / 83; Pulse 58; Resp 17; Temp 97.5(TE); Pulse Ox 98% on R/A; mh5 18:12 BP 136 / 91; Pulse 64; Resp 18; Temp 97.8(O); Pulse Ox 98% on R/A; Pain 4/10; ls4 14:39 Body Mass Index 25.09 (83.91 kg, 182.88 cm) hb MDM: 14:45 Patient medically screened. [facility] 15:07 Differential diagnosis: bowel obstruction, diverticulitis, Irritable bowel syndrome, keila non-specific abd pain, pancreatitis, urinary tract infection. Data reviewed: vital signs, nurses notes, lab test result(s), radiologic studies, CT scan. Data interpreted: classroom monitor: rate is 103 beats/min, Pulse oximetry: on room air is 100 %. Test interpretation: by ED physician or midlevel provider:. Counseling: I had a detailed discussion with the patient and/or guardian regarding: the historical points, exam findings, and any diagnostic results supporting the discharge/admit diagnosis, lab results, radiology results. Medical screen evaluation completed. [facility] emergency medical condition absent. 17:09 Awaiting: CT scan results, for reading. [facility] 09/24 15:01 Order name: Basic Metabolic Panel; Complete Time: 15:58 09/24 15:01 Order name: CBC with Diff; Complete Time: 15:58 09/24 15:01 Order name: Hepatic Function; Complete Time: 15:58 09/24 15:01 Order name: Lipase; Complete Time: 15:58 09/24 15:01 Order name: CT Abd/Pelvis - Without Cont (PO Contrast Only); Complete Time: 17:24 [facility] 09/24 15:54 Order name: Urine Dipstick--Ancillary (enter results); Complete Time: 17:07 09/24 15:01 Order name: IV Saline Lock; Complete Time: 15:12 [facility] 09/24 15:01 Order name: Labs collected and sent; Complete Time: 15:12 [facility] 09/24 15:01 Order name: Urine Dipstick-Ancillary (obtain specimen); Complete Time: 17:32 [facility] Administered Medications: 16:12 Drug: NS 0.9% 1000 ml Route: IV; Rate: 1 bolus; Site: left antecubital; ls4 17:30 Follow up: IV Status: Completed infusion; IV Intake: 1000ml ls4 16:12 Drug: morphine 2 mg Route: IVP; Site: left antecubital; ls4 18:12 Follow up: Response: No adverse reaction ls4 16:12 Drug: Zofran (Ondansetron) 4 mg Route: IVP; Site: left antecubital; ls4 18:05 Follow up: Response: No adverse reaction; Marked relief of symptoms ls4 18:04 Drug: Potassium Effervescent Tablet 25 mEq Route: PO; ls4 18:11 Follow up: Response: No adverse reaction ls4 18:04 Drug: Lactulose 30 grams Volume: 45 ml; Route: PO; ls4 18:11 Follow up: Response: No adverse reaction ls4 18:04 Drug: Dulcolax Suppository 10 mg Route: AK; ls4 18:11 Follow up: Response: No adverse reaction ls4 Disposition: 09/25/19 17:27 Discharged to Home. Impression: Abdominal tenderness, Constipation, Hypokalemia. - Condition is Stable. - Discharge Instructions: Abdominal Pain, Adult, Constipation, Adult, Potassium Content of Foods, Constipation, Adult, [id number], Abdominal Pain, Adult, [id number], Hypokalemia. - Prescriptions for Bentyl 20 mg Oral Tablet - take 1 tablet by ORAL route every 6 hours As needed; 20 tablet. Dulcolax 10 mg Rectal Suppository - insert 1 suppository by RECTAL route once daily As needed; 10 suppository. Miralax 17 gram/dose Oral - take 1 packet by ORAL route every 12 hours dilute powder in 8 ounces of water or juice; 28 packet. - Medication Reconciliation Form, Thank You Letter, Antibiotic Education, Prescription Opioid Use form. - Follow up: Darrell Mejia MD; When: 2 - 3 days; Reason: Recheck today's complaints, Continuance of care, Re-evaluation by your physician. Follow up: Fernando Sotelo MD; When: 5 - 6 days; Reason: Recheck today's complaints, Re-evaluation by your physician. Follow up: Lucius Gupta MD; When: 2 - 3 days; Reason: Recheck today's complaints, Continuance of care, Re-evaluation by your physician. - Problem is new. - Symptoms have improved. Signatures: Dispatcher [employer] EDMS Delroy Ring MD MD cha Baxter, Heather, RN RN Savannah Gaxiola RN RN ls4 Corrections: (The following items were deleted from the chart) 14:43 14:43 Allergies: No Known Allergies; hb hb 17:28 17:27 09/25/2019 17:27 Discharged to Home. Impression: Abdominal tenderness; keila Constipation. Condition is Stable. Forms are Medication Reconciliation Form, Thank You Letter, Antibiotic Education, Prescription Opioid Use. Follow up: Darrell Mejia; When: 2 - 3 days; Reason: Recheck today's complaints, Continuance of care, Re-evaluation by your physician. Follow up: Fernando Sotelo; When: 5 - 6 days; Reason: Recheck today's complaints, Re-evaluation by your physician. Follow up: Lucius Gupta; When: 2 - 3 days; Reason: Recheck today's complaints, Continuance of care, Re-evaluation by your physician. Problem is new. Symptoms have improved. keila 18:19 17:28 09/25/2019 17:27 Discharged to Home. Impression: Abdominal tenderness; ls4 Constipation; Hypokalemia. Condition is Stable. Discharge Instructions: Abdominal Pain, Adult, Constipation, Adult, Constipation, Adult, [id number], Abdominal Pain, Adult, [id number]. Prescriptions for Bentyl 20 mg Oral Tablet - take 1 tablet by ORAL route every 6 hours As needed; 20 tablet, Dulcolax 10 mg Rectal Suppository - insert 1 suppository by RECTAL route once daily As needed; 10 suppository, Miralax 17 gram/dose Oral - take 1 packet by ORAL route every 12 hours dilute powder in 8 ounces of water or juice; 28 packet. and Forms are Medication Reconciliation Form, Thank You Letter, Antibiotic Education, Prescription Opioid Use. Follow up: Darrell Mejia; When: 2 - 3 days; Reason: Recheck today's complaints, Continuance of care, Re-evaluation by your physician. Follow up: Fernando Sotelo; When: 5 - 6 days; Reason: Recheck today's complaints, Re-evaluation by your physician. Follow up: Lucius Gupta; When: 2 - 3 days; Reason: Recheck today's complaints, Continuance of care, Re-evaluation by your physician. Problem is new. Symptoms have improved. keila
--- NOTE | 2019-09-25 17:27 | ER ---
Nurse's Notes [facility] Name: Hank De Age: 68 yrs Sex: Male : 1950 Arrival Date: 09/25/2019 Time: 14:36 Bed 6 Private MD: Darrell Mejia Diagnosis: Abdominal tenderness;Constipation;Hypokalemia Presentation: 09/24 14:39 Chief complaint: Lower abdominal pain x 4-5 months, worse over last few days. Denies hb N/V/D/ Hx of chronic constipation. Coronavirus screen: Proceed with normal triage. Ebola Screen: No symptoms or risks identified at this time. Initial Sepsis Screen: Does the patient meet any 2 criteria? HR > 90 bpm. No. Patient's initial sepsis screen is negative. Does the patient have a suspected source of infection? No. Patient's initial sepsis screen is negative. Risk Assessment: Do you want to hurt yourself or someone else? Patient reports no desire to harm self or others. Onset of symptoms was September 22, 2019. 14:39 Method Of Arrival: Ambulatory 14:39 Acuity: SEBASTIAN 3 hb Triage Assessment: 15:12 Pain: Complains of pain in left lower quadrant and right lower quadrant Pain currently ls4 is 6 out of 10 on a pain scale. Quality of pain is described as crampy. GI: Abdomen is non-distended, Bowel sounds present X 4 quads. Abd is soft and non tender X 4 quads. Reports lower abdominal pain. 15:12 General: Behavior is cooperative. ls4 Historical: - Allergies: 14:43 iv contrast; hb - PMHx: 14:43 Hyperlipidemia; Hypertension; hb - PSHx: 14:43 Knee surgery; Hernia repair; Appendectomy; Brain tumor sx; Thumb sx; hb - Immunization history:: Adult Immunizations up to date. - Social history:: Smoking status: Patient denies any tobacco usage or history of. - Family history:: not pertinent. Screenin:11 Abuse screen: Denies threats or abuse. Denies injuries from another. Nutritional ls4 screening: No deficits noted. Tuberculosis screening: No symptoms or risk factors identified. Fall Risk None identified. Assessment: 15:01 General: Appears uncomfortable. Neuro: No deficits noted. Cardiovascular: No deficits ls4 noted. Respiratory: No deficits noted. Airway is patent Breath sounds are clear bilaterally. GI: No deficits noted. No signs and/or symptoms were reported involving the gastrointestinal system. GI: Abdomen is round non-distended, Bowel sounds hypoactive in right upper quadrant, left upper quadrant, right lower quadrant and left lower quadrant Bruits. : No deficits noted. No signs and/or symptoms were reported regarding the genitourinary system. Derm: No deficits noted. No signs and/or symptoms reported regarding the dermatologic system. Musculoskeletal:. Vital Signs: 14:39 BP 143 / 99; Pulse 103; Resp 16; Temp 97.9; Pulse Ox 100% on R/A; Weight 83.91 kg; hb Height 6 ft. (182.88 cm); Pain 9/10; 16:00 BP 129 / 83; Pulse 62; Resp 18; Temp 97.5(O); Pulse Ox 99% on R/A; Pain 5/10; ls4 16:56 BP 158 / 83; Pulse 58; Resp 17; Temp 97.5(TE); Pulse Ox 98% on R/A; mh5 18:12 BP 136 / 91; Pulse 64; Resp 18; Temp 97.8(O); Pulse Ox 98% on R/A; Pain 4/10; ls4 14:39 Body Mass Index 25.09 (83.91 kg, 182.88 cm) hb ED Course: 14:36 Patient arrived in ED. ag5 14:37 Darrell Mejia MD is Private Physician. ag5 14:42 Triage completed. hb 14:43 Arm band placed on. hb 14:45 Darrell Leal RN is Primary Nurse. bp 14:45 Delroy Ring MD is Attending Physician. keila 15:11 No apparent distress. ls4 15:11 Patient has correct armband on for positive identification. Bed in low position. Call ls4 light in reach. Side rails up X 1. cardiac monitor on. Pulse ox on. NIBP on. Warm blanket given. Verbal reassurance given. Diet: Patient is NPO. 15:11 No provider procedures requiring assistance completed. Initial lab(s) drawn, by ny, ls4 sent to lab. Inserted saline lock: 18 gauge in left antecubital area, using aseptic technique. Blood collected. 17:04 CT Abd/Pelvis - Without Cont (PO Contrast Only) In Process Unspecified. EDMS 17:25 Darrell Mejia MD is Referral Physician. [facility] 17:26 Fernando Sotelo MD is Referral Physician. keila 17:26 Lucius Gupta MD is Referral Physician. keila 18:18 IV discontinued, intact, bleeding controlled, No redness/swelling at site. Pressure ls4 dressing applied. Administered Medications: 16:12 Drug: NS 0.9% 1000 ml Route: IV; Rate: 1 bolus; Site: left antecubital; ls4 17:30 Follow up: IV Status: Completed infusion; IV Intake: 1000ml ls4 16:12 Drug: morphine 2 mg Route: IVP; Site: left antecubital; ls4 18:12 Follow up: Response: No adverse reaction ls4 16:12 Drug: Zofran (Ondansetron) 4 mg Route: IVP; Site: left antecubital; ls4 18:05 Follow up: Response: No adverse reaction; Marked relief of symptoms ls4 18:04 Drug: Potassium Effervescent Tablet 25 mEq Route: PO; ls4 18:11 Follow up: Response: No adverse reaction ls4 18:04 Drug: Lactulose 30 grams Volume: 45 ml; Route: PO; ls4 18:11 Follow up: Response: No adverse reaction ls4 18:04 Drug: Dulcolax Suppository 10 mg Route: NM; ls4 18:11 Follow up: Response: No adverse reaction ls4 Intake: 17:30 IV: 1000ml; Total: 1000ml. ls4 Outcome: 17:27 Discharge ordered by . [facility] 18:18 Discharged to home ambulatory. ls4 18:18 Condition: good 18:18 Discharge instructions given to patient, family, Instructed on discharge instructions, follow up and referral plans. medication usage, Demonstrated understanding of instructions, follow-up care, medications, Prescriptions given X 3. 18:19 Patient left the ED. ls4 Signatures: Dispatcher [employer] EDIL Delroy Ring MD MD cha Baxter, Heather, RN RN Anneliese Seth 5 Darrell Leal, Savannah Malik RN, RN RN ls4 Trevin Mccarthy ag5 Corrections: (The following items were deleted from the chart) 14:43 14:43 Allergies: No Known Allergies; hb
[2019-09-25] MEDS ORDERED: POTASSIUM 25 MEQ EFFERV TAB ONE (17:57)
[2019-09-25] MEDS ORDERED: LACTULOSE 20 GM/30 ML UCUP ONE (17:57)
[2019-09-25] MEDS ORDERED: BISACODYL 10 MG RECTAL SUPP ONE (17:57)
[2019-09-25 18:41] VITALS: O2SAT 98
[2019-09-25 18:43] VITALS: BP 136/91; TEMP 97.8
== END 2019-09-25 18:19 | disposition home or self-care (01) ==
LOC: ER 14:34
DX: K59.00 Constipation, unspecified (principal); E87.6 Hypokalemia; I10 Essential (primary) hypertension; Z91.041 Radiographic dye allergy status
CPT/HCPCS: 85025; 80048; 36415; 80076; 81003; 83690; 74176; J2270; J7030; J2405; 96361; 96374; 96375; 99284